=== PATIENT | male | born 1960 | race Hispanic/Latino ===

== ENCOUNTER 2017-03-05 12:49 | Day surgery (SDC) | payer OTHER ==
[2017-03-05] VITALS (8 sets, daily range): BP systolic 113–131; BP diastolic 7–84; PULSE 72–86; RESP 16–22; O2SAT 97–100
[~2017-03-05] VITALS: Ht 165.1 cm; Wt 75.3 kg
[~2017-03-05 12:49] MED LIST: ASCO500C6 PO; CALC500T9 PO; CHOL100045 PO
[2017-03-05] MEDS ORDERED: Ondansetron 2 mg/mL 2 mL Inj ONE (12:50)
[2017-03-05] MEDS ORDERED: Succinylcholine Chloride 20 mg/mL 5 mL Inj ONE (12:50)
[2017-03-05] MEDS ORDERED: Dexamethasone 4 mg/mL Inj ONE (12:50)
[2017-03-05] MEDS ORDERED: HYDROcodone-APAP 5-325 mg Tablet PO PRN (12:50)
[2017-03-05] MEDS ORDERED: Propofol 10 mg/mL 20 mL Inj ONE (12:50)
[2017-03-05] MEDS ORDERED: Ketorolac 15 mg/mL Inj IVPUSH ONE (12:50)
[2017-03-05] MEDS ORDERED: EPHEDrine/NS 5 mg/mL 5 mL Syringe ONE (12:50)
[2017-03-05] MEDS ORDERED: fentaNYL-PF 50 mCg/mL 2 mL Inj ONE (12:50)
--- NOTE | 2017-03-05 12:53 | PCM.ORTHOP ---
Orthopedic Operative Report Date of Service: Mar 05, 2017 Pre Operative Diagnosis Right shoulder rotator cuff tear, impingement syndrome, acromioclavicular joint arthritis, adhesive capsulitis Post Operative Diagnosis same Procedure Right shoulder manipulation under anesthesia, rotator cuff repair, subacromial decompression, distal clavicle excision, extensive debridement Surgeon Surgeon: Berry Marx MD Assistants: Piotr Dudley Indication for Procedure Right shoulder rotator cuff tear Findings Per dictation Details of Procedure FIELD CREW CHIEF SURGEON: During the operation, the services of physician surgical instrument technician were medically indicated and necessary to provide exposure of the operative site for the surgical procedure and to maintain the limb in a proper position to carry out the operation safely and efficiently. Without the qualified or assistant being present, it would have extended the operative procedure and made the procedure technically more difficult to perform. INDICATIONS: The patient is Peter Lara who is a 57-year-old male. The risks, benefits, and alternatives of surgery were discussed with the patient. The risks included but were not limited to infection, bleeding, damage to vessels and nerves, loss of motion, continued pain, complications due to anesthesia including myocardial infarction, stroke, , etc. The patient stated understanding of the nature of the surgical procedure and gave written and verbal consent to proceed. PROCEDURE: The patient was brought into the operating room and placed supine on the operating room table. A supraclavicular block was placed in the right shoulder for postoperative pain management, followed by the administration of general anesthesia. . The patient was then placed into the lateral decubitus position with the right side up. An axillary role was placed and the legs were padded as necessary to avoid pressure points. The patient was maintained in position with a beanbag evacuation device. A thorough examination of the right shoulder under anesthesia was performed. The patient had 120 degrees of forward elevation and 90 degrees of abduction. In 90 degrees of abduction there was 70 degrees of external rotation and degrees of internal rotation. The shoulder was stable to load-shift testing. The manipulation anesthesia was performed with increased motion 150 for flexion , 120 of abduction, 90 of external rotation, and 70 internal rotation The right upper extremity was then prepped and draped in the usual fashion. The arm was suspended with a well-padded sleeve with eight/ten pounds of balanced suspension in the arthroscopic position. A standard posterior portal was made inferior and medial to the posterior corner of the acromion. The incision was made only through skin. The trocar was advanced through the soft tissue with a blunt-tipped obturator. This was inserted into the glenohumeral joint without difficulty. The 4 mm arthroscope was placed through the cannula and attached to the video monitor system. Inflow was achieved using the arthroscopic pump. The pressure was maintained at 35-40 mm of mercury throughout the entire procedure. Once the arthroscope confirmed visualization within the shoulder joint, it was advanced anteriorly into the rotator interval beneath the biceps tendon. A Wissinger munira was then used to create the anterior portal from inside-out. A second anterior stab wound incision was made only through skin and an anterior cannula was placed. A routine arthroscopic survey was begun. An extensive debridement was then performed of unstable cartilage, tendon, degenerative labral tissue , all debrided back to stable tissue Survey: A3, B3, C3 RTC tear 3cm X 2cm, anterior labral tearing, no biceps tendinitis The arm was then placed in the bursoscopy position. Complex surgical procedure: This was an extremely complex surgical procedure which took approximately 30-40 % longer to complete than a standard repair. Without the use of a qualified graphic design assistant, this surgical procedure would have taken even considerably longer and been unable to be performed arthroscopically. Javi: In light of the significant longitudinal split tear of the Subscapularis, the decision was made to proceed with [id number] repair of the subscapularis. Using a Spectrum suture hook, a #1 PDS stitch was passed across the rotator cuff , subscapularis. This was then sequentially tied using a [place] slider knot and alternating half hitches. This gave excellent loop and knot security and closed the longitudinal split tear well. [place] procedure: Within the subacromial space there was marked fraying on the undersurface of the coracoacromial ligament consistent with impingement. A decision was thus made to proceed with arthroscopic subacromial decompression. Using an RF wand and a motorized shaver the coracoacromial ligament was recessed from the anterior acromial edge. An orientation trough was made along the lateral margin of the acromion, from the anterior corner back to the posterior margin of the AC joint. A sequential subacromial smoothing was carried out, removing approximately [default value] mm of bone corresponding to the preoperative radiographs. Once completed, the AC joint capsule was opened. There was inferior spurring as well as synovitis and arthritic changes at the AC joint and a decision was made to proceed with distal clavicle excision. Using a motorized bur working initially from posteriorly and then anteriorly, the outer 10 mm of the distal clavicle were excised. The arthroscope was then positioned anteriorly within the AC resection site confirming an excellent level of resection. Through a separate fascial incision, an extensive debridement of the subacromial space was then performed consisting of frayed CA ligament , inflamed bursal tissue, bursal sided tendon fraying. Two anchor supraspinatus repair Attention was then directed to the rotator cuff repair. Using the motorized shaver from both the anterolateral portal and the posterior portal, the free edge of rotator cuff was debrided. The anatomic neck of the tuberosity was then gently abraded, using the motorized shaver and exposing good bone for healing. Via an accessory anterolateral portal, two triple-loaded were then inserted with excellent fixation purchase. The 6 stitches from these two anchors were then transported across the rotator cuff spacing the sutures equidistantly. Once the sutures were all passed, they were sequentially tied using SMC knots and alternative half-hitches which gave excellent loop and knot security. This reduced the rotator cuff back to the anatomic neck. A microfracture was then performed laterally on the tuberosity creating a crimson duvet to aid in tendon healing. The arm was then placed through a range of motion. The rotator cuff and humeral head moved well as a unit. There was no further evidence for impingement The arm was placed through a range of motion and the rotator cuff and humeral head moved well as a unit. There was no further evidence of impingement. The subacromial space was irrigated with an additional liter of lactated Ringer s solution and excess fluid was drained. The arthroscopic portals were closed with #4-0 Nylon and Steri-Strips. A dry sterile dressing was applied, followed by a neutral rotation sling. The patient was awakened in the operating room and transported to the recovery room in satisfactory condition. The patient appeared to tolerate the procedure well. There were no complications noted. Nonweightbearing to affected upper extremity. Please leave sling on at all times. You may remove sling 3 times a day to move the elbow wrist and fingers. Do not move your shoulder. Please keep the affected extremity elevated when possible. You may use ice and/or heat as needed for comfort. Follow-up in 2 weeks with me with 2-view xrays and for suture removal and Steri -Strip application, start physical therapy phase 1. Follow-up with PA at 6 weeks, 12 weeks, 18 weeks with progression of physical therapy as per my protocol (please ask me for protocol if needed). Follow-up with me before full release at 5 months postop. Grafts, Implants: Implants-See Implant Record Complications There were no periprocedural complications identified. Condition Stable Anesthetic Administered: GA Catheters: None Output, Estimated Blood Loss: 5 Blood Admin during surgery: No Surgical Cast or Splint: Shoulder Immobilizer Surgical Specimen Removed: No Specimen sent to Pathology: No copies to: Berry Marx MD, Christopher L MD Mar 05, 2017 12:52 Two anchor helix supraspinatus repair Attention was then directed to the rotator cuff repair. Using the motorized shaver from both the anterolateral portal and the posterior portal, the free edge of rotator cuff was debrided. The anatomic neck of the tuberosity was then gently abraded, using the motorized shaver and exposing good bone for healing. Via an accessory anterolateral portal, two triple-loaded were then inserted with excellent fixation purchase. The 6 stitches from these two anchors were then transported across the rotator cuff spacing the sutures equidistantly. Once the sutures were all passed, they were sequentially tied using SMC knots and alternative half-hitches which gave excellent loop and knot security. This reduced the rotator cuff back to the anatomic neck. A microfracture was then performed laterally on the tuberosity creating a crimson duvet to aid in tendon healing. The arm was then placed through a range of motion. The rotator cuff and humeral head moved well as a unit. There was no further evidence for impingement ARTHROSCOPIC BICEPS TENODESIS Attention was then directed towards biceps tenodesis. With the arthroscope in the lateral viewing portal a motorized shaver was introduced from the anterior working portal, identifying the Mehalik hitch at the top of the bicipital groove. A motorized shaver and VAPR wand was then used inferior from this, debriding the proximal humerus and identifying the falciform ligament. The biceps tendon was then identified and the bicipital sheath was opened using a probe. The groove did reveal evidence of synovitis in this area. With appropriate resting tension maintained using the Mehalik hitch, a percutaneous spinal needle was used to noel the resting position of the biceps tendon, as well as the position for tenodesis at the bottom of the inter-tubercular groove. A blue palak was then used to noel with tendon. An accessory anterior inferior portal was made approximately 6-7 cm from the anterior acromial margin under arthroscopic control. A qwec-mqs-[id number] technique was used to spread the soft tissues down to the level of the bicipital groove. The long head of the biceps was then retrieved using a grasper and the tendon was brought out the wound. A #2 Double loaded Fiberwire Car Net stitch was placed for a length of 1.5 cm from the blue palak marking position in the proximal biceps. This was then sized using the [employer] biotenodesis set and measured mm. A mm reamer was then selected. A Canuflex cannula was then placed onto the bicipital groove. The biotenodesis guide wire was placed into the proximal humerus at the designated marking position corresponding to the appropriate tension and introduced just to the posterior cortex. The anterior cortex was then reamed using the reamer for a depth of 20 mm. 2 7/64 holes were then created approximately 1.5 cm inferior to the tunnel for suture passing. A Spectrum suture hook was placed through the inferior cylinder sander operator hole and retrieved out the proximal tunnel. A shuttling technique was carried out passing one suture limb on either side of the long head of the biceps. Tension was then applied to the biceps sutures, reducing and docking the biceps intra-osseously. With the elbow in full extension and the hand in full supination tension was applied to reapproximate the anatomic resting length and the biceps was then secured using an arthroscopic Revo knot, tying the two limbs of the suture together over the biceps tendon. This gave excellent secure fixation. The biceps was then probed and had stable fixation. The arm was placed through a range of motion and the rotator cuff and humeral head moved well as a unit. There was no further evidence of impingement. The subacromial space was irrigated with an additional liter of lactated Ringer s solution and excess fluid was drained. The arthroscopic portals were closed with #4-0 Nylon and Steri-Strips. A dry sterile dressing was applied, followed by a neutral rotation sling. The patient was awakened in the operating room and transported to the recovery room in satisfactory condition. The patient appeared to tolerate the procedure well. There were no complications noted. Nonweightbearing to affected upper extremity. Please leave sling on at all times. You may remove sling 3 times a day to move the elbow wrist and fingers. Do not move your shoulder. Please keep the affected extremity elevated when possible. You may use ice and/or heat as needed for comfort. Follow-up in 2 weeks with me with 2-view xrays and for suture removal and Steri -Strip application, start physical therapy phase 1. Follow-up with PA at 6 weeks, 12 weeks, 18 weeks with progression of physical therapy as per my protocol (please ask me for protocol if needed). Follow-up with me before full release at 5 months postop. Grafts, Implants: Implants-See Implant Record Complications There were no periprocedural complications identified. Condition Stable Anesthetic Administered: GA Catheters: None Output, Estimated Blood Loss: 5 Blood Admin during surgery: No Surgical Cast or Splint: Shoulder Immobilizer Surgical Specimen Removed: No Specimen sent to Pathology: No copies to: Berry Marx MD, Christopher L MD Mar 05, 2017 12:52
[2017-03-05] MEDS ORDERED: Clindamycin 600 mg/50 mL D5W Premix IV ONE (12:57)
[2017-03-05] MEDS: Lactated Ringer's 1,000 ML IV SCH ×2 (13:00→13:20)
--- NOTE | 2017-03-05 13:24 | PCM.HPANE ---
Patient Data Date of Service: Mar 05, 2017 Surgeon Admitting Provider: Attending Provider:Berry Marx MD Primary Care Physician:Brandon Palacios MD Other Provider:Kaelyn Lion Anesthesia Reason for Visit Right Shoulder Rotator Cuff Tear Ht/WT & BMI Height (Feet): 5 Height (Inches): 5.00 Weight (Kilograms): 75.300 Body Mass Index 27.00 Allergies Coded Allergies: Penicillins (Unverified Allergy, Unknown, 03/04/17) Past Anesthesia History Anesthesia History: Denies:: Fam Anesthesia Reaction, Fam Malignant Hypertherm Diabetes History Hx Diabetes?: No MRSA MRSA: No Medications Home Meds Incl Beta Nita: No Reported Medications Cholecalciferol (Vitamin D3) (Vitamin D)1,000 Unit Capsule1,000 Unit PO DAILY # 1 BOTTLE Ref 0 03/04/17 Ascorbic Acid (Vitamin C)500 Mg Capsule.er500 Mg PO DAILY 03/04/17 Calcium Carbonate (Tums)500 Mg Tab.odlb830 Mg PO PRN PRN For Dyspepsia or Heartburn 30 Days 03/04/17 History History of ENT Problems?: No HEENT History: Denies:: Abnormal Airway Difficult Intubation Dysphagia Denture Type: None Teeth Condition: Within Normal Limits Hx of Heart Problems?: No Cardiovascular History: Denies:: Heart Murmur Hypertension Hx of Respiratory Problem?: No Respiratory History: Denies:: Asthma Use of C-PAP Machine Hx Neurologic Problems?: No Neurological History: Denies:: CVA Seizures Hx of GI Problems?: No Hx of Problems?: No HX of Peritoneal Dialysis: No Male Hx: Denies:: Prostate Problems Scrotal Mass Testicular Surgery Skin History: Denies:: History Skin Disorders? Pressure Ulcers Hx Musculoskeletal Problems?: Yes Musculoskeletal History: Positive for:: Musculoskeletal Trauma (RT ROTATOR CUFF TEAR=CURRENT PROBLEM) Hx of Psycho/Social Problems?: No Hx Surgeries?: No Hx Any Other Health Problems?: No Other History: Denies:: Cancer Endocrine Disease Hospitalization Thyroid Disease History Blood Transfusions: Denies:: Blood Transfusions Hx Diabetes: No Hx Alcohol Use: NoHx Substance Use: NoHave You Smoked inLast 12 mo: No Stop/Bang Treated for Sleep Apnea?: No Do You Have a CPAP Machine?: No S-Snoring: Do You Snore Loudly: No T-Tired: feel tired, fatigued: No O-Obsered: Observed not breath: No P-Blood Pressure: treated: No B- Body Mass Index > 35 kg/m2: No A- Age over 50: Yes N- Neck Large Circumference: No G- Gender Male: Yes MEGGAN Total Score: 2 Risk Assessment Category Category 1A: Patient has history of documented sleep apnea, and HAS NOT received any narcotic, sedative or anesthesia administration during this stay. Category 1B: Patient has history of documented sleep apnea, and HAS received any narcotic , sedative or anesthesia administration during this stay Category 2: Patient has SUSPECTED Obstructive Sleep Apnea, and HAS received any narcotic , sedative or anesthesia administration during this stay. Category 3: Patient has SUSPECTED Obstructive Sleep Apnea and HAS NOT received narcotic, sedative or anesthesia administration during this stay. Category 4: Outpatient in Procedural Areas with known sleep apnea or who screen positive for High Risk via the STOP/BANG questionnaire. Exam Exam Vital Signs Vital Signs Date Time Temp Pulse Resp B/P Pulse Ox O2 Delivery O2 Flow Rate FiO2 03/05/17 13:03 36.1 72 16 131/76 99 Room Air General Appearance: Alert, Oriented X3, Cooperative HEENT/AIRWAY: MP 2, Neck Movement (Full), Mouth Opening (Wide) Lungs: Clear to Auscultation, Normal Air Movement Heart: Regular Rate/Rhythm, Normal S1, Normal S2 Meds/Labs/Diagnostics Admission Meds Current Medications Lactated Ringer's (Lr) 1,000 ml @ 120 mls/hr [id number] IV Last administered on t 13:20; Start 03/05/17 at 05:00; Stop 03/05/17 at 13:19; Status DC Plan Impression Patient chart reviewed, patient interviewed and anesthestic plan with risks, benefits, and alternatives discussed, and informed consent obtained. NPO per Anesth. Guidelines: Yes ASA Physical Status: ASA1 Normal Healthy Anesthetic Plan: GA, Regional Block Bene/Risks/Altern/Consents: Yes HP Complete Prior to Induction: Yes Quinn Lucero MD Mar 05, 2017 13:23
[2017-03-05] MEDS: Clindamycin 600 mg/50 mL D5W IV ONE ×2 (13:30→13:33)
[2017-03-05] MEDS ORDERED: Lactated Ringer's 1,000 ML IV SCH (14:10)
[2017-03-05] MEDS ORDERED: fentaNYL-PF 50 mCg/mL 2 mL Inj IVPUSH PRN (14:10)
[2017-03-05] MEDS ORDERED: Atropine 0.4 mg/mL Inj IVPUSH PRN (14:10)
[2017-03-05] MEDS ORDERED: HYDROmorphone 1 mg/mL Inj IVPUSH PRN (14:10)
[2017-03-05] MEDS ORDERED: Dexamethasone 4 mg/mL Inj IVPUSH PRN (14:10)
[2017-03-05] MEDS ORDERED: hydrALAZINE 20 mg/mL Inj IVPUSH PRN (14:10)
[2017-03-05] MEDS ORDERED: Lactated Ringer's 500 ML IV PRN (14:10)
[2017-03-05] MEDS ORDERED: Ondansetron 2 mg/mL 2 mL Inj IVPUSH PRN (14:10)
[2017-03-05] MEDS ORDERED: Labetalol 5 mg/mL 4 mL Inj IV PRN (14:10)
[2017-03-05] MEDS ORDERED: MetoCLOpramide 5 mg/mL 2 mL Inj IVPUSH PRN (14:10)
[2017-03-05] MEDS ORDERED: EPHEDrine Sulfate 50 mg/mL Inj IVPUSH PRN (14:10)
[2017-03-05] MEDS ORDERED: Phenylephrine 10,000 mCg/mL Inj IVPUSH PRN (14:10)
--- NOTE | 2017-03-05 16:21 | PCM.ANEP1 ---
Post Anesthesia PACU Phase 1 Assessment Date of Service: Mar 05, 2017 Vital Signs Vital Signs Date Time Temp Pulse Resp B/P Pulse Ox O2 Delivery O2 Flow Rate FiO2 03/05/17 16:12 79 21 113/74 100 Room Air 03/05/17 16:07 21 114/7 100 Simple Mask 6 03/05/17 15:59 85 22 114/72 100 Simple Mask 9 03/05/17 15:50 35.6 86 19 116/84 99 Simple Mask 9 03/05/17 13:03 36.1 72 16 131/76 99 Room Air Anesthetic Administered: GA Level of Alertness: Awake, talking MARTIN's with Equal Strength: No Pain: Yes Pain Scale Score: 3 Nausea or Vomiting: No CV Function & Hydration Stable: Yes Airway Device: Oxygen Delivery: Room Air Lungs: Normal Air Movement PACU Phase 2 Assessment Complications: No Follow up Care: N/A Patient Instructions Provided: N/A Comments Confirmed with patient using court interpreter that he had chips in both front teeth prior to anesthesia. Noted during induction. Quinn Lucero MD Mar 05, 2017 16:21
== END 2017-03-05 23:59 | disposition home or self-care (01) ==
LOC: SAS 12:49
PROVIDERS: ATTEND Orthopaedic Surgery
DX: S46.011A Strain of muscle(s) and tendon(s) of the rotator cuff of right shoulder, initial encounter (principal); W20.8XXA Other cause of strike by thrown, projected or falling object, initial encounter; Y93.89 Activity, other specified; M19.011 Primary osteoarthritis, right shoulder; M75.41 Impingement syndrome of right shoulder; M25.511 Pain in right shoulder; Z95.0 Presence of cardiac pacemaker; Z95.2 Presence of prosthetic heart valve
CPT/HCPCS: 23430; 29826; 29827; 76942; C1713; J0330; J1100; J1885; J2250; J2405; J3010; J7120